=== PATIENT | female | born 1960 | race Caucasian/White ===

== ENCOUNTER → 2017-04-22 | Outpatient (CLI) | payer BC ==
[~2017-04-22] MED LIST: ALBUTEROL17 GM INH; AMOXICILLIN500 M1 PO; AZULFIDINE PO; BACTRIM DS TABL1 TA1 PO; CATAPRES0.1 MG PO; CIPRO PO; DOXYCYCLINE HY100 M1 PO; FERROUS SULFATE PO; FLAGYL PO; FLEXERIL PO; NO MEDICATIONS; PHENERGAN DM1 ML PO; PHENERGAN PO; TESSALON PERLE100 M1 PO; VICODIN 5/500 T1 TAB PO; VOLTAREN75 MG PO
--- NOTE | ~2017-04-22 | CR169 ---
[facility] A Service of [facility] RADIOLOGY TEXT RESULTS PATIENT: JOSÉ ANTONIO CARTER LOCATION: [facility] : 64 UNIT #: [id number] AGE: [address]: Verito Duran SEX: F ORDER DR: [id number] [address] [address] [id number] O MR#: [id number] Acc #: [id number] NAME: JOSÉ ANTONIO CARTER : 1960 SEX: F STUDY DATE/TIME: 04/22/2017 9:42 UNIT: [facility] ROOM: STUDY DESCRIPTION: CR Knee 2 Views Lt Attending Physician: Verito Duran A.P.R.N. Referring Physician: Verito Duran A.P.R.N. Ordering Physician: Verito Duran A.P.R.N. Primary Care Physician: Verito Duran A.P.R.N. MEDICAL IMAGING REPORT This report is preliminary unless electronic signature is present. EXAM Left knee, 2 views, 04/22/2017. HISTORY Left knee pain for 2 years. Pain across entire knee, worsening in the past week. FINDINGS Two views of the left knee demonstrate no fracture. There is degenerative change with small osteophytes along the posterior aspect of the patella and extending off the medial femoral condyle. The bones are normally mineralized. There is no joint effusion. IMPRESSION Minimal degenerative change left knee. No acute abnormality. Dictated by... Shaun Price M.D. THIS IS AN ELECTRONICALLY VERIFIED REPORT Shaun Price M.D. at 04/23/2017 10:18 AM STEVEN/ramon TD: 04/22/2017 14:01 JOB #: [id number] MEDICAL IMAGING REPORT Page 1 of 1
== END | disposition home or self-care (01) ==
LOC: SRAD 09:35
DX: M25.562 Pain in left knee (principal)
CPT/HCPCS: 73560